=== PATIENT | male | born 1945 | race Caucasian/White ===

== ENCOUNTER 2016-08-15 03:33 | Emergency (ER) | payer MEDICARE ==
[~2016-08-15 03:33] MED LIST: ALLOPURINOL1 POW; BUPROPRION; ERYTHROMYCIN5 MG/GM OP; FLOMAX PO
[2016-08-15] MEDS ORDERED: CETIRIZINE PO (03:35)
== END 2016-08-15 04:00 | disposition home or self-care (01) ==
LOC: ED 03:33
DX: J30.9 Allergic rhinitis, unspecified (principal)
CPT/HCPCS: J1040

== ENCOUNTER → 2016-08-25 | Outpatient (CLI) | payer MEDICARE ==
[~2016-08-25] MED LIST changes: +CETIRIZINE PO
== END ==
LOC: LAB 07:28
DX: N40.0 Benign prostatic hyperplasia without lower urinary tract symptoms (principal); I10 Essential (primary) hypertension; N18.2 Chronic kidney disease, stage 2 (mild); M1A.09X0 Idiopathic chronic gout, multiple sites, without tophus (tophi)

== ENCOUNTER → 2017-01-27 | Outpatient (CLI) | payer MEDICARE ==
[2016-08-15 04:00] VITALS: BP 154/90
== END ==
LOC: LAB 15:17
DX: R94.6 Abnormal results of thyroid function studies (principal)

== ENCOUNTER → 2019-07-20 | Outpatient (CLI) | payer MEDICARE ==
[2016-08-15 04:00] VITALS: BP 154/90
== END ==
LOC: RAD 11:07
DX: R22.1 Localized swelling, mass and lump, neck (principal)

== ENCOUNTER → 2022-02-22 | Outpatient (CLI) | payer MEDICARE | LOC: RAD 06:53 | DX: M75.21 Bicipital tendinitis, right shoulder (principal) ==

== ENCOUNTER → 2023-10-21 | Outpatient (CLI) | payer MEDICARE ==
[2023-10-21 10:40] LABS: BASO # 0.04 K/mm3 (0.02-0.10); EOS # 0.13 K/mm3 (0.04-0.40); EOS % 3.9 % (0.0-4.0); HEMATOCRIT 44.1 % (42.0-52.0); HEMOGLOBIN 14.7 g/dL (13.5-18.0); LYMPH# 0.87 K/mm3 (1.50-4.00); MEAN CELL VOLUME 93 fl (78-100); MEAN CORPUSCULAR HEMOGLOBIN 31 pg (27-31); MEAN CORPUSCULAR HGB CONC 33 g/dL (33-37); MEAN PLATELET VOLUME 10.5 fl (7.4-10.4); MONO # 0.64 K/mm3 (0.20-0.80); NEU # 1.68 K/mm3 (1.40-6.50); PLATELET COUNT 164 K/mm3 (130-400); RED BLOOD COUNT 4.73 M/mm3 (4.20-5.60); RED CELL DISTRIBUTION WIDTH 12.8 % (11.5-14.5); WHITE BLOOD COUNT 3.4 K/mm3 (4.8-10.8)
[2023-10-21 10:48] LABS: ALBUMIN 4.3 g/dL (3.4-4.8)
[2023-10-21 10:49] LABS: CALCIUM 9.6 mg/dL (8.3-10.5)
[2023-10-21 10:52] LABS: TOTAL BILIRUBIN 0.8 mg/dL (0.2-1.2)
[2023-10-21 22:17] LABS: TESTOSTERONE 524 ng/dL (221-716)
== END ==
LOC: LAB 10:08
PROVIDERS: Internal Medicine
DX: Z12.11 Encounter for screening for malignant neoplasm of colon (principal); Z12.5 Encounter for screening for malignant neoplasm of prostate; M1A.00X0 Idiopathic chronic gout, unspecified site, without tophus (tophi); G60.9 Hereditary and idiopathic neuropathy, unspecified; K90.9 Intestinal malabsorption, unspecified; E78.2 Mixed hyperlipidemia; R73.9 Hyperglycemia, unspecified; F52.21 Male erectile disorder

== ENCOUNTER → 2023-10-24 | Outpatient (CLI) | payer MEDICARE | LOC: LAB 09:31 | DX: Z12.5 Encounter for screening for malignant neoplasm of prostate (principal); Z12.11 Encounter for screening for malignant neoplasm of colon; M1A.00X0 Idiopathic chronic gout, unspecified site, without tophus (tophi); G60.9 Hereditary and idiopathic neuropathy, unspecified; K90.9 Intestinal malabsorption, unspecified; E78.2 Mixed hyperlipidemia; F52.21 Male erectile disorder; R73.9 Hyperglycemia, unspecified ==

== ENCOUNTER 2024-02-20 22:43 | Emergency (ER) | payer MEDICARE ==
[~2024-02-20] VITALS: Ht 182.9 cm; Wt 12737.0 kg
[2024-02-20] MEDS ORDERED: NEURONTIN300 MG/CAP (22:54)
[2024-02-20] MEDS ORDERED: OMEPRAZOLE40 MG PO (22:54)
[2024-02-20 22:55] VITALS: BP 128/77
== END 2024-02-20 23:53 | disposition home or self-care (01) ==
LOC: ED 22:43
DX: S91.312A Laceration without foreign body, left foot, initial encounter (principal); Z23 Encounter for immunization; W25.XXXA Contact with sharp glass, initial encounter; Y93.G1 Activity, food preparation and clean up
CPT/HCPCS: 90715

== ENCOUNTER 2024-07-13 02:44 | Emergency (ER) | payer MEDICARE, OTHER ==
[~2024-07-13] VITALS: Ht 182.9 cm; Wt 117.8 kg
[~2024-07-13 02:44] MED LIST changes: +NEURONTIN300 MG/CAP; +OMEPRAZOLE40 MG PO
[2024-07-13 03:09] LABS: BASO # 0.03 K/mm3 (0.02-0.10); EOS # 0.17 K/mm3 (0.04-0.40); EOS % 1.6 % (0.0-4.0); HEMATOCRIT 46.1 % (42.0-52.0); HEMOGLOBIN 15.4 g/dL (13.5-18.0); LYMPH# 1.35 K/mm3 (1.50-4.00); MEAN CELL VOLUME 93 fl (78-100); MEAN CORPUSCULAR HEMOGLOBIN 31 pg (27-31); MEAN CORPUSCULAR HGB CONC 33 g/dL (33-37); MEAN PLATELET VOLUME 10.2 fl (7.4-10.4); NEU # 8.65 K/mm3 (1.40-6.50); PLATELET COUNT 199 K/mm3 (130-400); RED BLOOD COUNT 4.96 M/mm3 (4.20-5.60); WHITE BLOOD COUNT 10.8 K/mm3 (4.8-10.8)
[2024-07-13 03:14] LABS: ALBUMIN 4.5 g/dL (3.4-4.8)
[2024-07-13] MEDS ORDERED: NS 1,000 ML IV SCH ×2 (03:15→04:00)
[2024-07-13 03:16] LABS: CALCIUM 9.7 mg/dL (8.3-10.5)
[2024-07-13 03:17] LABS: TOTAL PROTEIN 7.4 g/dL (6.2-8.1)
[2024-07-13 03:19] LABS: TOTAL BILIRUBIN 0.4 mg/dL (0.2-1.2)
[2024-07-13 04:09] LABS: URINE APPEARANCE CLEAR (CLEAR); URINE BILIRUBIN NEGATIVE (NEGATIVE); URINE BLOOD NEGATIVE (NEGATIVE); URINE COLOR YELLOW (YELLOW); URINE GLUCOSE NEGATIVE (NEGATIVE); URINE KETONE NEGATIVE (NEGATIVE); URINE LEUKOCYTE ESTERASE NEGATIVE (NEGATIVE); URINE NITRATE NEGATIVE (NEGATIVE); URINE PROTEIN(semi-quant) NEGATIVE (NEGATIVE); URINE WBC 0-1 /hpf (0-3)
[2024-07-13] MEDS ORDERED: Acetaminophen 500 MG TAB PO ONE (07:15)
[2024-07-13 07:45] LABS: TROPONIN-I 0.069 ng/mL (0.00-0.033)
[2024-07-13] MEDS ORDERED: Piperacillin/Tazobactam Sodium 4.5 GM in Water For Injection,Sterile 20 ML IV ONE (08:15)
[2024-07-13] MEDS ORDERED: Vancomycin 2 G in NS 500 ML IV ONE (09:00)
[2024-07-13] MEDS ORDERED: NS 100 ML IV ONE (09:35)
[2024-07-13] MEDS ORDERED: Iohexol 300 - 100 ML VIAL IV ONE (09:36)
[2024-07-13 10:45] VITALS: BP 86/50
--- NOTE | 2024-07-13 22:29 | NUR ---
[employer] NOTIFIES THIS NURSE OF PROBLEM WITH PATIENT BLOOD CULTURES. THESE WILL NOT BE RESULTED. THIS NURSE CALLED VAHID REYES AT [phone] TO NOTIFY THE NURSE TAKING CARE OF PATIENT OF SITUATION. ALL QUESTIONS ANSWERED.
[2024-07-18 11:51] LABS: ARSENIC URINE AMS
[2024-07-18 11:52] LABS: MERCURY URINE AMS
== END 2024-07-13 10:45 | disposition short-term general hospital (02) ==
LOC: ED 02:44
PROVIDERS: Family Medicine; Nurse Practitioner
DX: R50.9 Fever, unspecified (principal); K59.00 Constipation, unspecified
CPT/HCPCS: J2543; J3370; J7030; J7040; J7060; J7120; Q9967

== ENCOUNTER 2024-07-20 16:28 | Outpatient (RCR) | payer MEDICARE, OTHER | END 2024-07-27 | LOC: LAB | DX: Z77.010 Contact with and (suspected) exposure to arsenic (principal); R65.21 Severe sepsis with septic shock ==

== ENCOUNTER → 2024-07-23 | Outpatient (CLI) | payer MEDICARE, OTHER ==
[2024-07-23 08:33] LABS: BASO # 0.03 K/mm3 (0.02-0.10); EOS # 0.21 K/mm3 (0.04-0.40); EOS % 3.3 % (0.0-4.0); HEMATOCRIT 43.4 % (42.0-52.0); HEMOGLOBIN 14.4 g/dL (13.5-18.0); LYMPH# 1.15 K/mm3 (1.50-4.00); MEAN CELL VOLUME 93 fl (78-100); MEAN CORPUSCULAR HEMOGLOBIN 31 pg (27-31); MEAN CORPUSCULAR HGB CONC 33 g/dL (33-37); MEAN PLATELET VOLUME 9.5 fl (7.4-10.4); MONO # 0.77 K/mm3 (0.20-0.80); NEU # 4.17 K/mm3 (1.40-6.50); PLATELET COUNT 230 K/mm3 (130-400); RED BLOOD COUNT 4.65 M/mm3 (4.20-5.60); RED CELL DISTRIBUTION WIDTH 13.5 % (11.5-14.5); WHITE BLOOD COUNT 6.4 K/mm3 (4.8-10.8)
[2024-07-23 08:46] LABS: ALBUMIN 4.1 g/dL (3.4-4.8)
[2024-07-23 08:47] LABS: CALCIUM 9.5 mg/dL (8.3-10.5)
[2024-07-23 08:48] LABS: TOTAL PROTEIN 7.4 g/dL (6.2-8.1)
[2024-07-23 08:50] LABS: TOTAL BILIRUBIN 0.5 mg/dL (0.2-1.2)
[2024-07-23 08:55] LABS: MAGNESIUM 2.07 mg/dL (1.60-2.60)
== END ==
LOC: LAB 08:17
PROVIDERS: Internal Medicine
DX: R65.21 Severe sepsis with septic shock (principal)

== ENCOUNTER → 2024-10-12 | Outpatient (CLI) | payer MEDICARE, OTHER ==
[2024-10-12 10:14] LABS: BASO # 0.02 K/mm3 (0.02-0.10); EOS # 0.16 K/mm3 (0.04-0.40); HEMATOCRIT 44.8 % (42.0-52.0); HEMOGLOBIN 14.9 g/dL (13.5-18.0); LYMPH# 1.07 K/mm3 (1.50-4.00); MEAN CELL VOLUME 94 fl (78-100); MEAN CORPUSCULAR HEMOGLOBIN 31 pg (27-31); MEAN CORPUSCULAR HGB CONC 33 g/dL (33-37); MEAN PLATELET VOLUME 10.2 fl (7.4-10.4); MONO # 0.55 K/mm3 (0.20-0.80); NEU # 2.19 K/mm3 (1.40-6.50); PLATELET COUNT 190 K/mm3 (130-400); RED BLOOD COUNT 4.78 M/mm3 (4.20-5.60)
[2024-10-12 10:43] LABS: CALCIUM 9.1 mg/dL (8.3-10.5)
[2024-10-12 10:44] LABS: TOTAL PROTEIN 7.4 g/dL (6.2-8.1)
[2024-10-12 10:46] LABS: TOTAL BILIRUBIN 0.8 mg/dL (0.2-1.2)
[2024-10-12 10:51] LABS: MAGNESIUM 2.39 mg/dL (1.60-2.60)
[2024-10-12 11:05] LABS: ALBUMIN 4.2 g/dL (3.4-4.8)
[2024-10-12 22:53] LABS: CREATININE OTHER SOURCE 70 mg/dL (47-110)
== END ==
LOC: LAB 09:32
PROVIDERS: Internal Medicine
DX: Z12.11 Encounter for screening for malignant neoplasm of colon (principal); Z12.5 Encounter for screening for malignant neoplasm of prostate; M1A.00X0 Idiopathic chronic gout, unspecified site, without tophus (tophi); G60.9 Hereditary and idiopathic neuropathy, unspecified; K90.9 Intestinal malabsorption, unspecified; N18.9 Chronic kidney disease, unspecified; R73.9 Hyperglycemia, unspecified